=== PATIENT | male | born 1990 | race Caucasian/White ===

== ENCOUNTER → 2016-06-28 | Outpatient (CLI) | payer OTHER ==
--- NOTE | 2016-06-28 11:58 | DIAGNOSTIC IMAGING REPORT ---
ABDOMEN LIMITED (US) CLINICAL HISTORY: LESION IN MIDDLE OF BACK COMPARISON STUDY: None. FINDINGS: Real-time sonographic imaging of the midline of the lumbar region was performed. There is focal skin thickening at the midline of the back. No fluid collections or masses identified. IMPRESSION: Focal skin thickening at the midline of the lumbar region. No underlying mass identified. Dermatology consultation is recommended for further evaluation. Electronically signed by: Krish Castorena M.D. 06/28/2016 11:57 AM Dictated Date/Time: 06/28/2016 11:56 AM
== END | disposition home or self-care (01) ==
LOC: C.ULTRBC 11:14
PROVIDERS: ATTEND Plastic Surgery
DX: M79.9 Soft tissue disorder, unspecified (principal)

== ENCOUNTER → 2016-10-05 | Outpatient (CLI) | payer OTHER | END | disposition home or self-care (01) | LOC: C.RDSM 09:01 | PROVIDERS: ATTEND Orthopaedic Surgery Sports Medicine | DX: S99.919A Unspecified injury of unspecified ankle, initial encounter (principal); X58.XXXA Exposure to other specified factors, initial encounter ==

== ENCOUNTER → 2016-10-20 | Outpatient (CLI) | payer OTHER | END | disposition home or self-care (01) | LOC: C.RDSM 13:31 | PROVIDERS: ATTEND Orthopaedic Surgery Sports Medicine | DX: Z09 Encounter for follow-up examination after completed treatment for conditions other than malignant neoplasm (principal); M79.672 Pain in left foot; M25.572 Pain in left ankle and joints of left foot; Z87.312 Personal history of (healed) stress fracture ==

== ENCOUNTER → 2016-11-05 | Outpatient (CLI) | payer OTHER | END | disposition home or self-care (01) | LOC: C.RDSM 09:51 | PROVIDERS: ATTEND Orthopaedic Surgery Sports Medicine | DX: Z09 Encounter for follow-up examination after completed treatment for conditions other than malignant neoplasm (principal) ==

== ENCOUNTER → 2016-12-07 | Outpatient (CLI) | payer OTHER | END | disposition home or self-care (01) | LOC: C.RDSM 13:41 | PROVIDERS: ATTEND Orthopaedic Surgery Sports Medicine | DX: S92.355D Nondisplaced fracture of fifth metatarsal bone, left foot, subsequent encounter for fracture with routine healing (principal); X58.XXXD Exposure to other specified factors, subsequent encounter ==